=== PATIENT | male | born 1960 | race Caucasian/White ===

== ENCOUNTER → 2017-06-20 | Outpatient (POV) | LOC: OUTPT 00:01 | PROVIDERS: ATTEND Otolaryngology | DX: H69.90 Unspecified Eustachian tube disorder, unspecified ear (principal); H91.91 Unspecified hearing loss, right ear | CPT/HCPCS: 92557; 92567 ==

== ENCOUNTER → 2017-06-27 | Outpatient (POV) | LOC: OUTPT 00:01 | PROVIDERS: ATTEND Otolaryngology | DX: H69.90 Unspecified Eustachian tube disorder, unspecified ear (principal) | CPT/HCPCS: 92567 ==